=== PATIENT | male | born 1990 | race Caucasian/White ===

== ENCOUNTER 2016-10-07 16:44 | Inpatient (IN) | payer OTHER ==
--- NOTE | ~2016-10-07 | PN ---
Unit #: [id number] #: [id number] Patient: SHANTHI ONEIL [id number] [facility] [address] [place] [address] [id number] MR#: [id number] NAME: SHANTHI ONEIL ROOM: P205 Age: 26 Sex: M Admission Date: 10/07/2016 : 1990 Attending Physician: Deirdre Garza M.D. Admitting Physician: Ivon Sung NOTES DATE OF SERVICE: 10/09/2016 SUBJECTIVE Mr. Oneil is a 26-year-old white male, who was seen today and chart was reviewed, and case was discussed with the staff. Reports persistent depression and anxiety. Meanwhile, he has been cooperative with treatment recommendations and has been taking the medications and tolerating them fairly well with no reported side effects. MENTAL STATUS EXAMINATION Young white male, who was casually dressed with fair personal hygiene, appears to be in no acute distress or discomfort. He was awake and alert on interaction with intact orientation. His mood was anxious with a congruent affect. He denies any suicidal or homicidal ideations. His insight and judgment remain slightly impaired. TREATMENT PLAN 1. We will continue him on his current medications and treatment protocol. We will monitor his response and make further adjustments as needed. 2. We will continue to follow up. Dictated by... Ivon Sung/juan franciscol TD: 10/09/2016 14:10 JOB #: [id number] ALEIDA QUINTANILLA NOTES Page 1 of 1 X Deirdre Garza MD PROGRESS NOTE
--- NOTE | ~2016-10-07 | HP ---
Unit #: [id number] #: [id number] Patient: SHANTHI ANTONIO [id number] [place] [address] [id number] MR#: [id number] NAME: SHANTHI ANTONIO ROOM: P205 Age: 26 Sex: M Admission Date: 10/07/2016 : 1990 Attending Physician: Deirdre Garza M.D. Admitting Physician: Deirdre Garza M.D. Primary Care Physician: Primary Care Physician No HISTORY AND PHYSICAL HISTORY OF PRESENT ILLNESS The patient is a 26 year old male admitted to [address] [place] [address] on 10/07/2016 for heroin dependence. PAST MEDICAL HISTORY 1. Polysubstance use. 2. Hypertension. 3. Hepatitis C. 4. Nicotine dependence. PAST SURGICAL HISTORY Right elbow. ALLERGIES Penicillin. SOCIAL HISTORY Patient is unemployed and homeless. He smokes 1 pack of cigarettes daily. He binge drinks 1 to 2 times per week and uses cocaine, heroin and methamphetamines on a daily basis. FAMILY HISTORY Noncontributory. REVIEW OF SYSTEMS CONSTITUTIONAL: No fever or chills. HEENT: Denies any sore throat, ear pain or runny nose. CARDIOVASCULAR: Denies chest pain, irregular heart rhythm or palpitations. CHEST: Denies shortness of breath or cough. No hemoptysis. GASTROINTESTINAL: Denies nausea, vomiting, diarrhea or chronic constipation. ENDOCRINE: Denies history of increased thirst or urination. No recent significant weight loss or gain. GENITOURINARY: Denies dysuria, frequency, or hematuria. SKIN: Denies any rashes. HEMATOLOGIC: Denies history of increased bleeding or bruising. MUSCULOSKELETAL: Denies any hot, swollen joints. No generalized muscle pain. NEUROLOGIC: Denies problems with vision or speech. No frequent, severe headaches. No numbness, tingling or weakness in any extremities. Denies loss of bladder or bowel control. CURRENT MEDICATIONS Unit #: [id number] #: [id number] Patient: SHANTHI ANTONIO Patient is not on any home medication. PHYSICAL EXAMINATION GENERAL: He is awake, alert, oriented, in no acute distress. VITAL SIGNS: Temperature 97.9, heart rate 90, respirations 18, blood pressure 116/78. HEIGHT: 6 feet 4. WEIGHT: 160 pounds. SKIN: Warm and dry without rash or lesion. HEENT: Normocephalic. TMs not viewed. Oral and nasal passages clear. Conjunctivae clear. PERRLA. EOMs intact. NECK: Supple without lymphadenopathy or thyromegaly. HEART: Regular rate and rhythm without murmur. LUNGS: Clear. ABDOMEN: Soft, nontender. : Not done. EXTREMITIES: No evidence of cyanosis, clubbing or edema. Moves all without focal deficit. NEUROLOGICAL: Grossly within normal limits. Cranial Nerves: II: Visual pozo are intact. III, IV AND : Extraocular movements are intact. Pupils are equal, round and reactive to light. V: Facial sensation is grossly normal. VII: Facial movements and expression are normal. VIII: Auditory acuity grossly intact. IX, X: Uvula is midline. Phonation is normal. XI: Patient shrugs shoulders and turns head normally. XII: Tongue protrudes in the midline. Sensory and Motor Function: Sensory and motor sensation is grossly normal. Motor: moves all extremities well. Coordination: Gait is normal. Deep Tendon Reflexes: Intact. IMPRESSION 1. Psychiatric admission. 2. Polysubstance abuse. 3. Hypertension. 4. Hepatitis C. 5. Smoker. RECOMMENDATIONS PSYCHIATRIC: Per psychiatrist. MEDICAL: No contraindications to participate in facility's activities. MEDICAL PROGNOSIS Good. MEDICAL CONDITION Stable. Dictated by... Talita Romero/gayatri TD: 10/08/2016 18:06 JOB #: [id number] Unit #: [id number] #: [id number] Patient: SHANTHI ANTONIO HISTORY AND PHYSICAL Page 1 of 1 X JORDYN PERKINS APRN X HISTORY AND PHYSICAL
--- NOTE | ~2016-10-07 | PA ---
Unit #: [id number] #: [id number] Patient: SHANTHI ONEIL [id number] [facility] [address] [place] [address] [id number] I MR#: [id number] NAME: SHANTHI ONEIL ROOM: P205 Age: 26 Sex: M Admission Date: 10/07/2016 : 1990 Date of Assessment: Attending Physician: Deirdre Garza M.D. Admitting Physician: Deirdre Garza M.D. PSYCHIATRIC ASSESSMENT IDENTIFYING DATA Mr. Oneil is a 26-year-old single white male who is a resident of [place] and apparently was self-referred to the hospital. CHIEF COMPLAINT "Just my long-term drug use." HISTORY OF PRESENT ILLNESS Mr. Oneil is a 26-year-old white male who was self-referred to the hospital. Upon presentation, he stated that he has been a long time substance abuser and "I have been a heroin addict for 5 years. I have always dealt with mental problem. I've tried to kill myself a few times and I thought about killing myself today, just I'm homeless, right now drug addict, and fairly I'm sick of living the way I live. I'm tired of it." He reports increasing depression, anxiety, irritability, restlessness, feelings of hopelessness and helplessness, and suicidal ideations and as such, recommendation for inpatient level of care for safety and stabilization was made. The patient was transferred to us. SUBSTANCE ABUSE HISTORY The patient reports long history of substance abuse and dependence including alcohol, cannabis, cocaine, opioids, amphetamines, and benzodiazepines, and it appears that currently opioids and methamphetamine has been his drug of choice and reports that he has been using a gram of heroin and half a gram of methamphetamine on a daily basis. PAST PSYCHIATRIC HISTORY The patient has had history of chemical dependency and psychiatric treatment in [place], though currently he is not active in any treatment program, and is not seeing a psychiatrist, and not taking any psychotropic medications. PAST MEDICAL HISTORY The patient's medical history is insignificant. ALLERGIES Penicillin. PERSONAL AND SOCIAL HISTORY A 26-year-old white male who reports that he is single, unemployed, and essentially homeless and has poor social support system. MENTAL STATUS EXAMINATION Unit #: [id number] #: [id number] Patient: SHANTHI ONEIL Young white male who was casually dressed with fair personal hygiene, appears to be in no acute distress or discomfort. He was awake and alert on interaction with intact orientation to time, place, and person. His mood was anxious with a congruent affect. His speech was slow and restricted in content. His thought processes were disorganized with some looseness of associations and suicidal ideations. His insight and judgment remain significantly impaired. DIAGNOSTIC IMPRESSION Psychiatric: Major depressive disorder, recurrent, moderate, without psychotic features; opioid dependence, moderate and acute withdrawals; methamphetamine dependence, moderate. Medical: None. Stressors: Moderate psychosocial stressors. TREATMENT PLAN 1. The patient has presented with history of mood disorder and substance abuse and has been decompensating, and will need inpatient hospitalization for detoxification, safety, and stabilization. We will start him on detox protocol. We will closely monitor for any worsening withdrawal symptoms. 2. Supportive therapy was provided to the patient. 3. Safe, structured, and nourishing environment will be provided. ESTIMATED LENGTH OF STAY 5 to 7 days. ABILITY TO HELP SELF Limited. WILLINGNESS TO HELP SELF The patient appears to be willing to help self. STRENGTHS 1. Communicative. 2. Cooperative. PROBLEMS 1. Chronic dysphoric symptoms. 2. Chronic chemical dependency. 3. Poor social support system. DISCHARGE CRITERIA This will be contingent upon the patient's ability to go through detox without having any significant withdrawal symptoms as well as his ability to stay safe to himself, particularly after discharge from the hospital. Dictated by... Ivon Sung/micheal TD: 10/08/2016 13:44 JOB #: [id number] Unit #: [id number] #: [id number] Patient: SHANTHI ONEIL PSYCHIATRIC ASSESSMENT Page 1 of 1 X Deirdre Garza MD X PSYCHIATRIC ASSESSMENT
--- NOTE | ~2016-10-07 | DS ---
Unit #: [id number] #: [id number] [facility] [id number] [facility] [address] [place] [address] [id number] I MR#: [id number] NAME: SHANTHI ONEIL ROOM: [facility] Age: 26 Sex: M Admission Date: 10/07/2016 : 1990 Discharge Date: 10/11/2016 Attending Physician: Deirdre Garza M.D. Primary Care Physician: Primary Care Physician No DISCHARGE SUMMARY IDENTIFYING DATA Mr. Oneil is a 26-year-old single white male, who is a resident of [place] and apparently self-referred himself to the hospital. DISCHARGE DIAGNOSES Psychiatric: Major depressive disorder, recurrent, moderate, without psychotic features; opioid dependence, moderate and acute withdrawals; methamphetamine dependence, moderate. Medical: None. Stressors: Moderate psychosocial stressors. HISTORY OF PRESENT ILLNESS Please see initial psychiatric evaluation for details. PAST PSYCHIATRIC HISTORY Please see initial psychiatric evaluation for details. PAST MEDICAL HISTORY Please see initial psychiatric evaluation for details. HOSPITAL COURSE The patient was admitted to the adult chemical dependency and psychiatric unit at [facility] and was oriented to the hospital environment. Routine p.r.n. medications were initiated, and he was started back on his home medications and detox protocol for opioid was initiated and he was also started on Celexa 20 mg a day as an antidepressant and he was closely monitored. He was taking the medications regularly and was tolerating them fairly well with no reported side effects and as such, it was decided that he will be discharged home and will continue treatment on an outpatient basis. DISCHARGE MEDICATIONS Celexa 20 mg a day for depression. DISCHARGE CONDITION Stable. PROGNOSIS Fair. Dictated by... Deirdre Garza M.D. Unit #: [id number] #: [id number] Patient: SHANTHI ONEIL IAA/modl TD: 10/11/2016 07:56 JOB #: [id number] DISCHARGE SUMMARY Page 1 of 1 X Deirdre Garza MD X DISCHARGE SUMMARY
--- NOTE | ~2016-10-07 | PN ---
Unit #: [id number] #: [id number] Patient: SHANTHI ONEIL [id number] [facility] [address] [place] [address] [id number] I MR#: [id number] NAME: SHANTHI OENIL ROOM: P205 Age: 26 Sex: M Admission Date: 10/07/2016 : 1990 Attending Physician: Deirdre Garza M.D. Admitting Physician: Deirdre Garza M.D. Primary Care Physician: Primary Care Physician Fina QUINTANILLA NOTES DATE OF SERVICE 10/10/2016 DISCUSSION Mr. Oneil is a 26-year-old white male who was seen today. Chart was reviewed and case was discussed with the staff. He has been anxious, withdrawn, and rather seclusive to himself. Meanwhile, he has been cooperative with the treatment recommendations and has been taking the medications and tolerating them fairly well with no reported side effects. MENTAL STATUS EXAMINATION Young white male who is casually dressed with fair personal hygiene, appears to be in no acute distress or discomfort. He was awake and alert on interaction with intact orientation. His mood is anxious with congruent affect. He denies any suicidal or homicidal ideations and also denies any auditory or visual hallucinations. His insight and judgment remain slightly impaired. TREATMENT PLAN 1. We will continue him on his current medications and treatment protocol. We will monitor his response to the medications and make further adjustments as needed. 2. We will continue to follow up. Dictated by... Deirdre Garza M.D. IAA/bzg TD: 10/11/2016 09:13 JOB #: [id number] Unit #: [id number] #: [id number] Patient: SHANTHI ONEIL PROGRESS NOTES Page 1 of 1 X Deirdre Garza MD PROGRESS NOTE
[2016-10-08 10:52] LABS: BASOPHIL% 0.4 % (0-2.5); EOSINOPHIL# 0.1 X10e3 (0-0.7); EOSINOPHIL% 2.1 % (0.0-7.0); HEMATOCRIT 45.6 % (38.0-50.0); HEMOGLOBIN 14.9 gm/dL (13.0-16.0); LYMPHOCYTE# 1.8 X10e3 (1.0-3.5); LYMPHOCYTE% 43.1 % (17.0-45.0); MEAN CELL VOLUME 93.3 FL (83-96); MEAN CORPUSCULAR HEMOGLOBIN 30.5 PG (28-34); MEAN CORPUSCULAR HGB CONC 32.7 g/dL (30-36); MEAN PLATELET VOLUME 8.5 FL (6.5-11.5); MONOCYTE# 0.4 X10e3 (0-1.0); MONOCYTE% 9.5 % (3.0-12.0); NEUTROPHIL# 1.9 X10e3 (1.5-7.1); NEUTROPHIL% 44.9 % (40-75); PLATELET COUNT 179 X10e3 (140-420); RED BLOOD COUNT 4.88 X10e (3.90-5.60); RED CELL DISTRIBUTION WIDTH 14.1 % (11.0-15.5); WHITE BLOOD COUNT 4.2 X10e3 (4.0-10.5)
[2016-10-08 10:54] LABS: DIFF IND NO
[2016-10-08 11:39] LABS: ALBUMIN SERUM 4.4 g/dL (3.5-5.0); BILIRUBIN,TOTAL 0.5 mg/dL (0.2-2.0); BUN/CREATININE RATIO 12.85; CALCIUM SERUM 9.5 mg/dL (8.4-10.2); CREATININE SERUM 0.7 mg/dL (0.6-1.4); GLOM FILT RATE Estimated 132.1 mL/min (>60); POTASSIUM 5.1 mmol/L (3.5-5.1); PROTEIN TOTAL SERUM 7.5 g/dL (6.0-8.3)
[2016-10-09 10:53] LABS: URINE APPEARANCE CLEAR; URINE BILIRUBIN NEG (NEG); URINE BLOOD NEG (NEG); URINE COLOR YELLOW; URINE GLUCOSE NEG (NEG); URINE KETONE NEG (NEG); URINE LEUKOCYTE ESTERASE NEG (NEG); URINE NITRATE NEG (NEG); URINE PH 5.5 (5-8); URINE PROTEIN NEG (NEG); URINE SPECIFIC GRAVITY 1.011 (1.003-1.035); URINE UROBILINOGEN 0.2 MG/DL (NEG)
[2016-10-09 11:11] LABS: AMPHETAMINE NEG (NEG); BARBITURATES NEG (NEG); BENZODIAZEPINES NEG (NEG); COCAINE NEG (NEG); MARIJUANA NEG (NEG); OPIATES POS (NEG); TRICYCLIC ANTIDEPRESSANTS NEG (NEG); U METHADONE NEG (NEG)
== END 2016-10-11 11:23 | DRG 885 ==
LOC: P2S 20:02
PROVIDERS: Psychiatry & Neurology Psychiatry
PROC: HZ2ZZZZ Detoxification Services for Substance Abuse Treatment (ICD-10-PCS; principal; 2016-10-07)
DX: F33.1 Major depressive disorder, recurrent, moderate (principal); F15.20 Other stimulant dependence, uncomplicated; F91.3 Oppositional defiant disorder; Z88.0 Allergy status to penicillin; F17.210 Nicotine dependence, cigarettes, uncomplicated
CPT/HCPCS: 80053; 80307; 81003; 85025; 86592